=== PATIENT | female | born 1970 | race Caucasian/White ===

== ENCOUNTER → 2017-10-20 | Outpatient (CLI) | payer BC ==
--- NOTE | 2017-10-21 07:08 | US ---
EXAMINATION TYPE: US pelvis complete transvag DATE OF EXAM: 10/20/2017 COMPARISON: NONE CLINICAL HISTORY: N92.0 Excessive Frequent Menstruation. Pt states recent vaginal bleeding --, LMP- 2 years ago/ pt not on HRT's, states history of endometriosis TECHNIQUE: Transvaginal (TV) and Transabdominal (TA) . Transabdominal sonographic images of the pel vis were acquired. Transvaginal sonographic images were medically necessary to better assess the fol lowing anatomy: Uterus Date of LMP: 10/08/17, last period before that was 2 years ago EXAM MEASUREMENTS: Uterus: 8.2 x 4.6 x 5.6 cm Endometrial Stripe: 1.0 cm Right Ovary: 2.3 x 1.6 x 1.5 cm Left Ovary: 2.0 x 1.7 x 2.2 cm 1. Uterus: Retroverted Heterogeneous with probable fibroid left= 5.5 x 4.5 x 5.5 cm, and right= 0.9 x 0.7 x 1.1 cm 2. Endometrium: thickened as the patient's last menses was 2 years ago 3. Right Ovary: wnl 4. Left Ovary: wnl 5. Bilateral Adnexa: small amount of free fluid right adnexa 6. Posterior cul-de-sac: wnl IMPRESSION: 1. Heterogenous myometrium with at least 2 hypoechoic uterine lesions most fitting for leiomyomas wit h the largest measuring up to 5.5 cm. 2. Thickened endometrium given the patient has not had menses within 2 years. Further evaluation with direct visualization or sonohysterogram could be performed to evaluate for endometrial hyperplasia, endometrial polyp or endometrial carcinoma. 3. Small amount of right adnexal free fluid, likely physiologic.
== END | disposition home or self-care (01) ==
LOC: RADUSWWP 16:26
PROVIDERS: ATTEND Family Medicine
DX: N85.9 Noninflammatory disorder of uterus, unspecified (principal); R93.8 Abnormal findings on diagnostic imaging of other specified body structures
CPT/HCPCS: 76830; 76856